=== PATIENT | male | born 1980 | race African-American/Black ===

== ENCOUNTER 2017-02-18 02:08 | Emergency (ER) | payer MEDICAID ==
[~2017-02-18] VITALS: Ht 177.8 cm; Wt 68.0 kg
[2017-02-18] MEDS ORDERED: HYDROCODONE/ACETAMINOPHEN 5/325MG TABLET PO ONE (03:00)
[2017-02-18] MEDS ORDERED: KETOROLAC 60MG/2ML VIAL IM ONE (03:00)
[2017-02-18 04:55] VITALS: BP 111/66
== END 2017-02-18 05:50 | disposition home or self-care (01) ==
LOC: ER 02:08
DX: S92.001A Unspecified fracture of right calcaneus, initial encounter for closed fracture (principal); F17.200 Nicotine dependence, unspecified, uncomplicated; F12.10 Cannabis abuse, uncomplicated; Z98.890 Other specified postprocedural states; X50.1XXA Overexertion from prolonged static or awkward postures, initial encounter; Y93.89 Activity, other specified; Y92.89 Other specified places as the place of occurrence of the external cause; Y99.8 Other external cause status
CPT/HCPCS: 29515; 73610; 73630; 99284; Z7610; J1885

== ENCOUNTER 2024-08-26 19:22 | Emergency (ER) | payer MEDICAID ==
[~2024-08-26] VITALS: Ht 180.3 cm; Wt 84.0 kg
[2024-08-26 19:31] VITALS: O2SAT 100
[2024-08-26] MEDS: KETOROLAC 30MG/ML VIAL IM ONE (20:02)
[2024-08-26] MEDS ORDERED: TOPUD MT (20:28)
[2024-08-26] MEDS ORDERED: CYCL10TA21 MT (20:28)
[2024-08-26 20:53] VITALS: TEMP 36.9; O2SAT 100
[2024-08-26 21:05] VITALS: BP 134/98; PULSE 100; RESP 19
[2024-08-26] MEDS: HYDROCODONE/ACETAMINOPHEN 5/325MG TABLET PO ONE (21:05)
== END 2024-08-26 20:54 | disposition home or self-care (01) ==
LOC: ER 19:22
DX: M54.12 Radiculopathy, cervical region (principal); M79.18 Myalgia, other site; F12.90 Cannabis use, unspecified, uncomplicated; F10.90 Alcohol use, unspecified, uncomplicated; Y90.9 Presence of alcohol in blood, level not specified
CPT/HCPCS: 72040; 96372; 99283; J1885; Z7610 ×2